=== PATIENT | female | born 1985 | race Caucasian/White ===

== ENCOUNTER 2016-08-05 08:37 | Inpatient (IN) | payer OTHER ==
[2016-08-05 09:23] VITALS: BMI 32.1
--- NOTE | 2016-08-05 13:41 | HP ---
COWS - Scale Resting Pulse: 1= [place] 81-100 Sweatin=Flushed/Facial Moisture Restless Observation: 1= Difficult to Sit Still Pupil Size: 0= Normal to Room Light Bone or Joint Aches: 2= Severe Diffuse Aches Runny Nose/ Eye Tearin= Runny Nose/Eyes GI Upset > 30mins: 2= Nausea/Diarrhea Tremor Observation: 2= Slight Tremor Visible Yawning Observation: 2= >3x During Session Anxiety or Irritability: 2=Irritable/Anxious Goose Flesh Skin: 3=Piloerection COWS Score: 19 CIWA Score - CIWA Score Nausea/Vomitin-Mild Nausea/No Vomiting Muscle Tremors: 4-Moderate,w/Arms Extend Anxiety: 3 Agitation: 4-Moderately Restless Paroxysmal Sweats: 3 Orientation: 0-Oriented Tacttile Disturbances: 0-None Auditory Disturbances: 0-None Visual Disturbances: 0-None Headache: 0-None Present CIWA-Ar Total Score: 15 Admission ROS S - HPI Chief Complaint: I am here to get clean. Allergies/Adverse Reactions: Allergies Allergy/AdvReac Type Severity Reaction Status Date / Time No Known Allergies Allergy Verified 08/05/16 10:27 History of Present Illness: pt is a 30yr old female first time here for a history of heroin and alcohol dependence seeking detox for treatment. Exam Limitations: No Limitations - Ebola screening Have you traveled outside of the country in the last 21 days: No Have you had contact with anyone from an Ebola affected area: No Have you been sick,other than usual withdrawal symptoms: No Do you have a fever: No - Review of Systems Constitutional: Chills, Diaphoresis, Loss of Appetite, Night Sweats, Changes in sleep EENT: reports: No Symptoms Reported Respiratory: reports: No Symptoms reported Cardiac: reports: No Symptoms Reported GI: reports: Constipated, Poor Appetite, Indigestion : reports: No Symptoms Reported Musculoskeletal: reports: Back Pain, Joint Pain, Muscle Pain Integumentary: reports: Flushing, Sweating Neuro: reports: Headache, Tingling, Tremors Endocrine: reports: Excessive Sweating, Flushing, Intolerance to Cold, Intolerance to Heat Hematology: reports: No Symptoms Reported Psychiatric: reports: Judgement Intact, Mood/Affect Appropiate, Orientated x3, Agitated, Anxious Other Systems: Reviewed and Negative Patient History - Patient Medical History Hx Anemia: Yes Hx Asthma: No Hx Chronic Obstructive Pulmonary Disease (COPD): No Hx Cancer: No Hx Cardiac Disorders: No Hx Congestive Heart Failure: No Hx Hypertension: No Hx Hypercholesterolemia: No Hx Pacemaker: No HX Cerebrovascular Accident: No Hx Seizures: No Hx Dementia: No Hx Diabetes: No Hx Gastrointestinal Disorders: No Hx Liver Disease: No Hx Genitourinary Disorders: No Hx Sexually Transmitted Disorders: No Hx Renal Disease (ESRD): No Hx Thyroid Disease: No Hx Human Immunodeficiency Virus (HIV): No (negative) Hx Hepatitis C: No Hx Depression: No Hx Suicide Attempt: No (denies) Hx Bipolar Disorder: No Hx Schizophrenia: No - Patient Surgical History Past Surgical History: Yes Hx Abdominal Surgery: Yes (Gastric bypass in 2010) Hx Appendectomy: Yes Hx Cholecystectomy: Yes - PPD History Previous Implant?: Yes Documented Results: Negative w/o proof Implanted On Prior [facility] Admission?: No PPD to be Administered?: Yes - Reproductive History Patient is a Female of Child Bearing Age (11 -55 yrs old): Yes LMP comment: IUD Patient : No - Smoking Cessation Smoking history: Current every day smoker Have you smoked in the past 12 months: Yes Aproximately how many cigarettes per day: 20 Hx Chewing Tobacco Use: No Initiated information on smoking cessation: Yes 'Breaking Loose' booklet given: 08/05/16 - Substance & Tx. History Hx Alcohol Use: Yes Substance Use Type: Alcohol, Heroin Hx Substance Use Treatment: Yes - Substances Abused Heroin Route: Injection Frequency: Daily Amount used: 15-20 bags Age of first use: 28 Date of Last Use: 08/04/16 Alcohol Route: Oral Frequency: Daily Amount used: 2-3 glasses Age of first use: 28 Date of Last Use: 08/04/16 Family Disease History - Family Disease History Family Disease History: Diabetes: Father (), Heart Disease: Father Admission Physical Exam [facility] - Vital Signs Vital Signs: Vital Signs - 24 hr 08/05/16 08/05/16 09:19 10:25 Temperature 98.6 F 98.6 F Pulse Rate 86 86 Respiratory 18 18 Rate Blood Pressure 129/87 129/87 - Physical General Appearance: Yes: Appropriately Dressed, Moderate Distress, Tremorous, Irritable, Sweating, Anxious HEENTM: Yes: Normal Voice Respiratory: Yes: Lungs Clear, Normal Breath Sounds, No Respiratory Distress Neck: Yes: No masses,lesions,Nodules Breast: Yes: Within Normal Limits Cardiology: Yes: Regular Rhythm, Regular Rate, S1, S2 Abdominal: Yes: Normal Bowel Sounds Genitourinary: Yes: Within Normal Limits Back: Yes: Normal Inspection Musculoskeletal: Yes: full range of Motion, Back pain, Muscle Pain Extremities: Yes: Normal Capillary Refill, Normal Inspection, Tremors Neurological: Yes: Fully Oriented, Alert, Normal Response Integumentary: Yes: Normal Color, Diaphoresis, Track Davis Lymphatic: Yes: Within Normal Limits - Diagnostic (1) Nicotine dependence Current Visit: Yes Status: Chronic Qualifiers: Nicotine product type: cigarettes Substance use status: uncomplicated Qualified Code(s): F17.210 - Nicotine dependence, cigarettes, uncomplicated (2) ADD (attention deficit disorder) Current Visit: Yes Status: Chronic (3) Alcohol dependence with uncomplicated withdrawal Current Visit: Yes Status: Chronic (4) Opioid dependence with withdrawal Current Visit: Yes Status: Chronic (5) Acne Current Visit: Yes Status: Chronic Qualifiers: Acne type: acne tropica Qualified Code(s): L70.3 - Acne tropica Cleared for Admission [facility] - Detox or Rehab [facility] Level of Care: Medically Managed Detox Regimen/Protocol: Methadone/Librium [facility] Breath Alcohol Content Breath Alcohol Content: 0 Urine Pregancy Test - Result Urine Test Results: Negative- NO Line Present Urine Drug Screen - Results Drug Screen Negative: No Urine Drug Screen Results: OPI-Opiates, AMP-Amphetamines, OXY-Oxycodone
[2016-08-05] MEDS ORDERED: MAG HYDROX/AL HYDROX/SIMETH 30 ML UNIT-DOSE CUP PO PRN (13:50)
[2016-08-05] MEDS ORDERED: MAGNESIUM HYDROX 2400MG/30ML ORAL SUSPENSION 30 ML CUP PO PRN (13:50)
[2016-08-05] MEDS ORDERED: LOPERAMIDE HCL 2 MG CAPSULE PO PRN (13:50)
[2016-08-05] MEDS ORDERED: MENTHOL/PHENOL 1 EACH UD MM PRN (13:50)
[2016-08-05] MEDS ORDERED: IBUPROFEN 400 MG TABLET (FP) PO PRN (13:50)
[2016-08-05] MEDS ORDERED: P-EPHED 60MG/TRIPROLIDI 2.5MG TABLET PO PRN (13:50)
[2016-08-05] MEDS ORDERED: diphenhydrAMINE HCL 50 MG CAPSULE PO PRN (13:50)
[2016-08-05] MEDS ORDERED: MAGNESIUM CITRATE 300 ML BOTTLE PO PRN (13:50)
[2016-08-05] MEDS ORDERED: guaiFENesin/D-METHORPHAN HB 10 ML UNIT-DOSE CUPS PO PRN (13:50)
[2016-08-05] MEDS ORDERED: SUMAtriptan SUCCINATE 25 MG TABLET PO PRN (13:52)
[2016-08-05] MEDS ORDERED: chlordiazePOXIDE HCL 25 MG CAPSULE PO ONE (14:17)
[2016-08-05] MEDS ORDERED: METHADONE HCL 10 MG TABLET (FOR DETOX USE ONLY) PO ONE ×2 (14:18→23:00)
--- NOTE | 2016-08-05 16:45 | CONSULT ---
[facility] Psychiatric Consult - Data Date of interview: 08/05/16 Admission source: [facility] Identifying data: First admission to [facility] for this 30 y/o female seeking detox treatment on for alcohol and heroin dependence.Patient is single,a mother of one,domiciled,currently unemployed and supported on her savings. Substance Abuse History: - Smoking Cessation. Smoking history: Current every day smoker. Have you smoked in the past 12 months: Yes. Aproximately how many cigarettes per day: 20. Hx Chewing Tobacco Use: No. Initiated information on smoking cessation: Yes. 'Breaking Loose' booklet given: 08/05/16. - Substance & Tx. History. Hx Alcohol Use: Yes. Substance Use Type: Alcohol, Heroin. Hx Substance Use Treatment: Yes. - Substances Abused. Heroin. Route: Injection. Frequency: Daily. Amount used: 15-20 bags. Age of first use: 28. Date of Last Use: 08/04/16. Alcohol. Route: Oral. Frequency: Daily. Amount used: 2-3 glasses. Age of first use: 28. Date of Last Use: 08/04/16. Confirmed by the patient in this interview. Medical History: Migraine headaches,anemia and a history of gastric bypass (2010 ). Psychiatric History: No history of psychiatric hospitalizations.Diagnosed with ADD.Maintained on adderall 20 mg po bid + ambien 10 mg/hs.Ms Wilkins is under the care of a private psychiatrist,Dr Robert Donovan (confirmed by pharmacy claims of 07/2016 ).She denies history of suicide attempts. Physical/Sexual Abuse/Trauma History: Patient denies. Additional Comment: Urine Drug Screen Results: OPI-Opiates, AMP-Amphetamines, OXY-Oxycodone.Noted. Mental Status Exam - Mental Status Exam Alert and Oriented to: Time, Place, Person Cognitive Function: Good Patient Appearance: Well Groomed Mood: Nervous, Apprehensive, Hopeful Affect: Mood Congruent Patient Behavior: Fatigued, Appropriate, Cooperative Speech Pattern: Clear, Appropriate Voice Loudness: Normal Thought Process: Intact, Goal Oriented Thought Disorder: Not Present Hallucinations: Denies Suicidal Ideation: Denies Homicidal Ideation: Denies Insight/Judgement: Fair Sleep: Poorly, Difficulty falling asleep Appetite: Good Muscle strength/Tone: Normal Gait/Station: Normal Psychiatric Findings - Problem List (Anita 1, 2,3) (1) ADD (attention deficit disorder) Current Visit: Yes Status: Chronic (2) Alcohol dependence with uncomplicated withdrawal Current Visit: Yes Status: Acute (3) Opioid dependence with withdrawal Current Visit: Yes Status: Acute (4) Nicotine dependence Current Visit: Yes Status: Acute Qualifiers: Nicotine product type: cigarettes Substance use status: uncomplicated Qualified Code(s): F17.210 - Nicotine dependence, cigarettes, uncomplicated (5) Acne Current Visit: Yes Status: Chronic Qualifiers: Acne type: acne tropica Qualified Code(s): L70.3 - Acne tropica (6) Insomnia Current Visit: Yes Status: Acute - Initial Treatment Plan Initial Treatment Plan: Psychoeducation.Detoxification.Medications : addrerall XR 20 mg po daily @ 8 am + zolpidem 10 mg po hs prn.Side effects/benefits discussed with the patient.She is made aware of the risk of parasomnias (ambien ) and occurrence of psychosis,agitation,cardiac complications (adderall) .Patient is reporting adequate tolerability to both drugs and she consents ( verbally) to follow this careplan.No scripts needed at discharge.Patient states that she still has enough supply at home to last her until 08/12/16 (date of her next appointment with her psychiatrist).Observation.
[2016-08-05] MEDS: chlordiazePOXIDE HCL 25 MG CAPSULE PO SCH ×2 (17:33→22:11)
[2016-08-05 20:33] LABS: URINE APPEARANCE CLOUDY; URINE BILIRUBIN NEGATIVE (NEGATIVE); URINE BLOOD NEGATIVE (NEGATIVE); URINE COLOR DKYELLOW; URINE GLUCOSE (UA) NEGATIVE (NEGATIVE); URINE KETONE NEGATIVE (NEGATIVE); URINE NITRITE NEGATIVE (NEGATIVE); URINE PROTEIN NEGATIVE (NEGATIVE); URINE UROBILINOGEN 2.0 E.U/dl E.U./dl (0.2-1.0)
[2016-08-05 20:44] LABS: URINE LEUK ESTERASE 1+ (NEGATIVE)
[2016-08-05 20:55] LABS: URINE BACTERIA RARE /hpf (NONE SEEN); URINE HYALINE CAST 3 /lpf; URINE MUCUS MANY; URINE RBC 6 /hpf (0-3); URINE WBC 13 /hpf (3-5); YEAST MANY
[2016-08-05] MEDS: THIAMINE HCL 100 MG TABLET (FP) PO SCH (22:10)
[2016-08-05] MEDS: CLINDAMYCIN PHOSPHATE 1% TOPICAL GEL 30 GM TUBE TP SCH (22:10)
[2016-08-05] MEDS: ZOLPIDEM TARTRATE 10 MG TABLET (PARK CARE ONLY) PO PRN (22:11)
[2016-08-06] MEDS: chlordiazePOXIDE HCL 25 MG CAPSULE PO PRN ×3 (00:28→18:41)
[2016-08-06] MEDS: chlordiazePOXIDE HCL 25 MG CAPSULE PO SCH ×4 (06:15→22:28)
[2016-08-06] MEDS: DEXTROAMPHETAMINE/AMPHETAMINE 10 MG CAP.ER.24H PO SCH (08:03)
--- NOTE | 2016-08-06 08:31 | PN ---
S COWS - Scale Resting Pulse: 0= [place] 80 or Below Sweatin= Chills/Flushing Restless Observation: 3= Extraneous Movement Pupil Size: 1= Pupils >than Normal Bone or Joint Aches: 2= Severe Diffuse Aches Runny Nose/ Eye Tearin= Runny Nose/Eyes GI Upset > 30mins: 2= Nausea/Diarrhea Tremor Observation of Outstretched Hands: 2= Slight Tremor Visible Yawning Observation: 2= >3x During Session Anxiety or Irritability: 2=Irritable/Anxious Goose Flesh Skin: 0=Smooth Skin COWS Score: 17 S Progress Note (SOAP) Subjective: ALERT,IRRITABLE,ANXIOUS,INTERRUPTED SLEEP,TREMOR,PAIN IN THE BODY AND BACK Objective: 08/06/16 08:30 Vital Signs Temperature 98.2 F 08/06/16 06:18 Pulse Rate 68 08/06/16 06:18 Respiratory Rate 16 08/06/16 06:18 Blood Pressure 113/67 08/06/16 06:18 O2 Sat by Pulse Oximetry (%) EKG NSR,NORMAL ECG Laboratory Last Values Urine Color Dkyellow 08/05/16 15:30 Urine Appearance Cloudy 08/05/16 15:30 Urine pH 5.0 (5.0-8.0) 08/05/16 15:30 Ur Specific [place] 1.024 (1.001-1.035) 08/05/16 15:30 Urine Protein Negative (NEGATIVE) 08/05/16 15:30 Urine Glucose (UA) Negative (NEGATIVE) 08/05/16 15:30 Urine Ketones Negative (NEGATIVE) 08/05/16 15:30 Urine Blood Negative (NEGATIVE) 08/05/16 15:30 Urine Nitrite Negative (NEGATIVE) 08/05/16 15:30 Urine Bilirubin Negative (NEGATIVE) 08/05/16 15:30 Urine Urobilinogen 2.0 e.u/dl E.U./dl (0.2-1.0) H 08/05/16 15:30 Ur Leukocyte Esterase 1+ (NEGATIVE) H 08/05/16 15:30 Urine RBC 6 /hpf (0-3) 08/05/16 15:30 Urine WBC 13 /hpf (3-5) 08/05/16 15:30 Ur Epithelial Cells Many /hpf (FEW) 08/05/16 15:30 Urine Bacteria Rare /hpf (NONE SEEN) 08/05/16 15:30 Hyaline Casts 3 /lpf 08/05/16 15:30 Urine Mucus Many 08/05/16 15:30 Urine Yeast Many 08/05/16 15:30 Hepatitis C Antibody 0.1 s/co ratio (0.0-0.9) 08/05/16 13:00 Assessment: 08/06/16 08:31 WITHDRAWAL SYMPTOM Plan: CONTINUE DETOX,REPEAT UA
[2016-08-06] MEDS: hydrOXYzine PAMOATE 50 MG CAPSULE (FP) PO PRN (08:52)
[2016-08-06 09:58] LABS: ALBUMIN 3.6 g/dl (3.4-5.0); ANION GAP 4 (8-16); CALCIUM 9.1 mg/dL (8.5-10.1); CO2 34 mmol/L (21-32); CREATININE 0.6 mg/dL (0.55-1.02); GLUCOSE,RANDOM 91 mg/dL (74-106); SGOT/AST 17 U/L (15-37); SGPT/ALT 14 U/L (12-78)
[2016-08-06 09:59] LABS: ALK PHOS 86 U/L (45-117); BILIRUBIN,TOTAL 0.3 mg/dL (0.2-1.0); TOT PROT 7.1 g/dl (6.4-8.2)
[2016-08-06] MEDS ORDERED: METHADONE HCL 10 MG TABLET (FOR DETOX USE ONLY) PO SCH (10:00)
[2016-08-06 10:09] LABS: MCHC 29.3 g/dl (32.0-36.0); MEAN CELL VOLUME 62.6 fl (80-96); MEAN PLT VOLUME 12.1 fl (7.5-11.1); PLATELET COUNT 251 K/MM3 (134-434); RDW 20.5 % (11.6-15.6); WHITE BLOOD COUNT 5.1 K/mm3 (4.0-10.0)
[2016-08-06] MEDS: NICOTINE 21 MG/24 HOURS TOPICAL PATCH TD SCH (10:14)
[2016-08-06] MEDS: CLINDAMYCIN PHOSPHATE 1% TOPICAL GEL 30 GM TUBE TP SCH ×2 (10:14→22:28)
[2016-08-06] MEDS: PRENATAL VITAMINS W/ FOLIC ACID TABLET (FP) PO SCH (10:15)
[2016-08-06 10:20] LABS: MCH 18.4 pg (25.7-33.7)
--- NOTE | 2016-08-06 11:00 | EKG ---
Test Reason : Blood Pressure : / mmHG Vent. Rate : 079 BPM Atrial Rate : 079 BPM P-R Int : 116 ms QRS Dur : 100 ms QT Int : 384 ms P-R-T Axes : 045 033 027 degrees QTc Int : 440 ms NORMAL SINUS RHYTHM NORMAL ECG NO PREVIOUS ECGS AVAILABLE Confirmed by DAMEON SEGUNDO MD ([id number]) on 08/06/2016 10:59:45 AM Referred By: Ezra Agustin Confirmed By:DAMEON SEGUNDO MD
[2016-08-06] MEDS: NICOTINE POLACRILEX 4 MG GUM BUC PRN (12:05)
[2016-08-06] MEDS ORDERED: CYCLOBENZAPRINE HCL 10 MG TABLET (FP) PO PRN (13:11)
[2016-08-06] MEDS ORDERED: CYCLOBENZAPRINE HCL 10 MG TABLET (FP) PO ONE (13:33)
[2016-08-06] MEDS ORDERED: cloNIDine HCL 0.1 MG TABLET PO ONE (13:33)
[2016-08-06 14:25] LABS: ANISOCYTOSIS 2+; HYPOCHROMIA 2+
[2016-08-06 14:26] LABS: TARGET CELLS FEW; TEAR DROP CELLS FEW
[2016-08-06] MEDS: THIAMINE HCL 100 MG TABLET (FP) PO SCH (22:28)
[2016-08-06] MEDS: cloNIDine HCL 0.1 MG TABLET PO SCH (22:29)
[2016-08-06] MEDS: ZOLPIDEM TARTRATE 10 MG TABLET (PARK CARE ONLY) PO PRN (22:29)
[2016-08-07] MEDS: chlordiazePOXIDE HCL 25 MG CAPSULE PO SCH ×2 (05:37→10:14)
[2016-08-07] MEDS: DEXTROAMPHETAMINE/AMPHETAMINE 10 MG CAP.ER.24H PO SCH (08:25)
--- NOTE | 2016-08-07 09:10 | PN ---
[facility] CIWA - CIWA Score Nausea/Vomitin Muscle Tremors: 3 Anxiety: 3 Agitation: 2 Paroxysmal Sweats: 1-Minimal Palms Moist Orientation: 0-Oriented Tacttile Disturbances: 1-Very Mild Itch/Numbness Auditory Disturbances: 1-Very Mild Visual Disturbances: 1-Very Mild Sensitivity Headache: 2-Mild CIWA-Ar Total Score: 17 [facility] COWS - Scale Resting Pulse: 0= [place] 80 or Below Sweatin= Chills/Flushing Restless Observation: 3= Extraneous Movement Pupil Size: 1= Pupils >than Normal Bone or Joint Aches: 2= Severe Diffuse Aches Runny Nose/ Eye Tearin= Runny Nose/Eyes GI Upset > 30mins: 2= Nausea/Diarrhea Tremor Observation of Outstretched Hands: 2= Slight Tremor Visible Yawning Observation: 1= 1-2x During Session Anxiety or Irritability: 2=Irritable/Anxious Goose Flesh Skin: 0=Smooth Skin COWS Score: 16 S Progress Note (SOAP) Subjective: ALERT,IRRITABLE,ANXIOUS,INTERRUPTED SLEEP,PAIN IN THE BODY AND BACK,TREMOR Objective: 08/07/16 09:08 Vital Signs Temperature 97.9 F 08/07/16 06:10 Pulse Rate 68 08/07/16 06:10 Respiratory Rate 16 08/07/16 06:10 Blood Pressure 105/63 08/07/16 06:10 O2 Sat by Pulse Oximetry (%) Laboratory Last Values WBC 5.1 K/mm3 (4.0-10.0) 08/06/16 06:00 RBC 4.47 M/mm3 (3.60-5.2) 08/06/16 06:00 Hgb 8.2 GM/dL (10.7-15.3) L 08/06/16 06:00 Hct 28.0 % (32.4-45.2) L 08/06/16 06:00 MCV 62.6 fl (80-96) L 08/06/16 06:00 MCHC 29.3 g/dl (32.0-36.0) L 08/06/16 06:00 RDW 20.5 % (11.6-15.6) H 08/06/16 06:00 Plt Count 251 K/MM3 (134-434) 08/06/16 06:00 MPV 12.1 fl (7.5-11.1) H 08/06/16 06:00 Hypochromic-Microcytic 2+ 08/06/16 06:00 Anisocytosis 2+ 08/06/16 06:00 Macrocytosis 1+ 08/06/16 06:00 Target Cells Few 08/06/16 06:00 Tear Drop Cells Few 08/06/16 06:00 Sodium 138 mmol/L (136-145) 08/06/16 06:00 Potassium 4.2 mmol/L (3.5-5.1) 08/06/16 06:00 Chloride 100 mmol/L (98-107) 08/06/16 06:00 Carbon Dioxide 34 mmol/L (21-32) H 08/06/16 06:00 Anion Gap 4 (8-16) L 08/06/16 06:00 BUN 7 mg/dL (7-18) 08/06/16 06:00 Creatinine 0.6 mg/dL (0.55-1.02) 08/06/16 06:00 Creat Clearance w eGFR > 60 (>60) 08/06/16 06:00 Random Glucose 91 mg/dL (74-106) 08/06/16 06:00 Calcium 9.1 mg/dL (8.5-10.1) 08/06/16 06:00 Total Bilirubin 0.3 mg/dL (0.2-1.0) 08/06/16 06:00 AST 17 U/L (15-37) 08/06/16 06:00 ALT 14 U/L (12-78) 08/06/16 06:00 Alkaline Phosphatase 86 U/L (45-117) 08/06/16 06:00 Total Protein 7.1 g/dl (6.4-8.2) 08/06/16 06:00 Albumin 3.6 g/dl (3.4-5.0) 08/06/16 06:00 Urine Color Dkyellow 08/05/16 15:30 Urine Appearance Cloudy 08/05/16 15:30 Urine pH 5.0 (5.0-8.0) 08/05/16 15:30 Ur Specific [place] 1.024 (1.001-1.035) 08/05/16 15:30 Urine Protein Negative (NEGATIVE) 08/05/16 15:30 Urine Glucose (UA) Negative (NEGATIVE) 08/05/16 15:30 Urine Ketones Negative (NEGATIVE) 08/05/16 15:30 Urine Blood Negative (NEGATIVE) 08/05/16 15:30 Urine Nitrite Negative (NEGATIVE) 08/05/16 15:30 Urine Bilirubin Negative (NEGATIVE) 08/05/16 15:30 Urine Urobilinogen 2.0 e.u/dl E.U./dl (0.2-1.0) H 08/05/16 15:30 Ur Leukocyte Esterase 1+ (NEGATIVE) H 08/05/16 15:30 Urine RBC 6 /hpf (0-3) 08/05/16 15:30 Urine WBC 13 /hpf (3-5) 08/05/16 15:30 Ur Epithelial Cells Many /hpf (FEW) 08/05/16 15:30 Urine Bacteria Rare /hpf (NONE SEEN) 08/05/16 15:30 Hyaline Casts 3 /lpf 08/05/16 15:30 Urine Mucus Many 08/05/16 15:30 Urine Yeast Many 08/05/16 15:30 RPR Titer Nonreactive (NONREACTIVE) 08/06/16 06:00 Hepatitis C Antibody 0.1 s/co ratio (0.0-0.9) 08/05/16 13:00 Assessment: 08/07/16 09:09 WITHDRAWAL SYMPTOM HISTORY OF ANEMIA USE TO TAKE IRON ,NON COMPLIANCE Plan: CONTINUE DETOX,FERROUS SULFATE 325 MGS PO BID
[2016-08-07] MEDS: NICOTINE POLACRILEX 4 MG GUM BUC PRN ×2 (09:11→13:50)
[2016-08-07] MEDS: chlordiazePOXIDE HCL 25 MG CAPSULE PO PRN ×2 (09:11→13:49)
[2016-08-07] MEDS ORDERED: COLLOIDAL OATMEAL 1 BAR EACH TP PRN (09:19)
[2016-08-07] MEDS: hydrOXYzine PAMOATE 50 MG CAPSULE (FP) PO PRN (10:14)
[2016-08-07] MEDS: NICOTINE 21 MG/24 HOURS TOPICAL PATCH TD SCH (10:15)
[2016-08-07] MEDS: PRENATAL VITAMINS W/ FOLIC ACID TABLET (FP) PO SCH (10:15)
[2016-08-07] MEDS: FERROUS SO4 325 MG TABLET (FP) PO SCH ×2 (10:15→22:53)
[2016-08-07] MEDS: CLINDAMYCIN PHOSPHATE 1% TOPICAL GEL 30 GM TUBE TP SCH ×2 (10:18→22:51)
[2016-08-07] MEDS: DOCUSATE SODIUM 100 MG CAPSULE (FP) PO SCH ×2 (10:18→22:53)
[2016-08-07] MEDS: cloNIDine HCL 0.1 MG TABLET PO SCH ×2 (10:21→22:09)
[2016-08-07] MEDS: METHADONE HCL 5 MG TABLET (FOR DETOX USE ONLY) PO SCH (10:21)
[2016-08-07] MEDS: ACETAMINOPHEN 325 MG TABLET (FP) PO PRN (12:15)
[2016-08-07 13:34] LABS: URINE APPEARANCE CLEAR; URINE BILIRUBIN NEGATIVE (NEGATIVE); URINE BLOOD NEGATIVE (NEGATIVE); URINE COLOR STRAW; URINE GLUCOSE (UA) NEGATIVE (NEGATIVE); URINE KETONE NEGATIVE (NEGATIVE); URINE NITRITE NEGATIVE (NEGATIVE); URINE PROTEIN NEGATIVE (NEGATIVE); URINE UROBILINOGEN NEGATIVE E.U./dl (0.2-1.0)
[2016-08-07 13:40] LABS: URINE LEUK ESTERASE TRACE (NEGATIVE)
[2016-08-07 13:41] LABS: URINE BACTERIA MANY /hpf (NONE SEEN); URINE MUCUS RARE; URINE WBC 2 /hpf (3-5)
[2016-08-07] MEDS: chlordiazePOXIDE 5 MG CAPSULE PO SCH ×2 (17:55→22:10)
[2016-08-07] MEDS: THIAMINE HCL 100 MG TABLET (FP) PO SCH (22:09)
[2016-08-07] MEDS: ZOLPIDEM TARTRATE 10 MG TABLET (PARK CARE ONLY) PO PRN (22:09)
[2016-08-08] MEDS: chlordiazePOXIDE 5 MG CAPSULE PO SCH ×2 (05:58→10:26)
[2016-08-08] MEDS: FERROUS SO4 325 MG TABLET (FP) PO SCH ×2 (10:15→22:23)
[2016-08-08] MEDS: cloNIDine HCL 0.1 MG TABLET PO SCH ×2 (10:25→22:23)
[2016-08-08] MEDS: PRENATAL VITAMINS W/ FOLIC ACID TABLET (FP) PO SCH (10:25)
[2016-08-08] MEDS: DEXTROAMPHETAMINE/AMPHETAMINE 10 MG CAP.ER.24H PO SCH (10:25)
[2016-08-08] MEDS: DOCUSATE SODIUM 100 MG CAPSULE (FP) PO SCH ×2 (10:25→22:23)
[2016-08-08] MEDS: CLINDAMYCIN PHOSPHATE 1% TOPICAL GEL 30 GM TUBE TP SCH ×2 (10:25→22:23)
[2016-08-08] MEDS: METHADONE HCL 5 MG TABLET (FOR DETOX USE ONLY) PO SCH (10:26)
[2016-08-08] MEDS: NICOTINE 21 MG/24 HOURS TOPICAL PATCH TD SCH (10:27)
--- NOTE | 2016-08-08 13:10 | PN ---
[facility] Progress Note Note: Psychiatry Attending's note (follow up) : Asked to re-consult. Reason not offered. Patient seen as per request. Doing well.Feels better and ready for discharge. Ms Wilkins denies hallucinations.No delusions. Patient denies suicidal ideation,intent or plan. Cognitively intact.No somatic complaints. Patient is ambulatory,visible,actively socializing. Adequate sleep reported.Good personal hygiene. Benign hospital course.Patient is at baseline. Ms Wilkins's statement : " I told the nurse that I needed a script for ambien at discharge.This is the reason why they called you." Patient was clearly informed,by this manual writer (on 08/05/16),that the utilization of ambien will be strictly confined to the duration of this hospital course. No scripts for zolpidem at discharge. Patient has an already scheduled appointment with her psychiatrist on 08/12/16.See my note of 08/05/16.
--- NOTE | 2016-08-08 13:51 | PN ---
S Progress Note (SOAP) Subjective: Sweating,interrupted sleep,restless Objective: 08/08/16 13:50 Vital Signs - 8 hr 08/08/16 08/08/16 06:00 10:00 Temperature 98.1 F 98.4 F Pulse Rate 76 92 H Respiratory 18 16 Rate Blood Pressure 110/64 119/69 Laboratory Last Values WBC 5.1 K/mm3 (4.0-10.0) 08/06/16 06:00 RBC 4.47 M/mm3 (3.60-5.2) 08/06/16 06:00 Hgb 8.2 GM/dL (10.7-15.3) L 08/06/16 06:00 Hct 28.0 % (32.4-45.2) L 08/06/16 06:00 MCV 62.6 fl (80-96) L 08/06/16 06:00 MCHC 29.3 g/dl (32.0-36.0) L 08/06/16 06:00 RDW 20.5 % (11.6-15.6) H 08/06/16 06:00 Plt Count 251 K/MM3 (134-434) 08/06/16 06:00 MPV 12.1 fl (7.5-11.1) H 08/06/16 06:00 Hypochromic-Microcytic 2+ 08/06/16 06:00 Anisocytosis 2+ 08/06/16 06:00 Macrocytosis 1+ 08/06/16 06:00 Target Cells Few 08/06/16 06:00 Tear Drop Cells Few 08/06/16 06:00 Sodium 138 mmol/L (136-145) 08/06/16 06:00 Potassium 4.2 mmol/L (3.5-5.1) 08/06/16 06:00 Chloride 100 mmol/L (98-107) 08/06/16 06:00 Carbon Dioxide 34 mmol/L (21-32) H 08/06/16 06:00 Anion Gap 4 (8-16) L 08/06/16 06:00 BUN 7 mg/dL (7-18) 08/06/16 06:00 Creatinine 0.6 mg/dL (0.55-1.02) 08/06/16 06:00 Creat Clearance w eGFR > 60 (>60) 08/06/16 06:00 Random Glucose 91 mg/dL (74-106) 08/06/16 06:00 Calcium 9.1 mg/dL (8.5-10.1) 08/06/16 06:00 Total Bilirubin 0.3 mg/dL (0.2-1.0) 08/06/16 06:00 AST 17 U/L (15-37) 08/06/16 06:00 ALT 14 U/L (12-78) 08/06/16 06:00 Alkaline Phosphatase 86 U/L (45-117) 08/06/16 06:00 Total Protein 7.1 g/dl (6.4-8.2) 08/06/16 06:00 Albumin 3.6 g/dl (3.4-5.0) 08/06/16 06:00 Urine Color Straw 08/07/16 10:20 Urine Appearance Clear 08/07/16 10:20 Urine pH 5.0 (5.0-8.0) 08/07/16 10:20 Ur Specific [place] 1.004 (1.001-1.035) 08/07/16 10:20 Urine Protein Negative (NEGATIVE) 08/07/16 10:20 Urine Glucose (UA) Negative (NEGATIVE) 08/07/16 10:20 Urine Ketones Negative (NEGATIVE) 08/07/16 10:20 Urine Blood Negative (NEGATIVE) 08/07/16 10:20 Urine Nitrite Negative (NEGATIVE) 08/07/16 10:20 Urine Bilirubin Negative (NEGATIVE) 08/07/16 10:20 Urine Urobilinogen Negative E.U./dl (0.2-1.0) 08/07/16 10:20 Ur Leukocyte Esterase Trace (NEGATIVE) H D 08/07/16 10:20 Urine RBC None /hpf (0-3) 08/07/16 10:20 Urine WBC 2 /hpf (3-5) 08/07/16 10:20 Ur Epithelial Cells Rare /hpf (FEW) 08/07/16 10:20 Urine Bacteria Many /hpf (NONE SEEN) 08/07/16 10:20 Hyaline Casts 3 /lpf 08/05/16 15:30 Urine Mucus Rare 08/07/16 10:20 Urine Yeast Many 08/05/16 15:30 RPR Titer Nonreactive (NONREACTIVE) 08/06/16 06:00 Hepatitis C Antibody 0.1 s/co ratio (0.0-0.9) 08/05/16 13:00 labs noted,pt. on feosol for anemia Assessment: 08/08/16 13:50 Withdrawal sx. Plan: Continue detox
[2016-08-08] MEDS: hydrOXYzine PAMOATE 50 MG CAPSULE (FP) PO PRN (14:19)
[2016-08-08] MEDS: chlordiazePOXIDE HCL 10 MG CAPSULE PO SCH ×2 (17:46→23:22)
[2016-08-08] MEDS: NICOTINE POLACRILEX 4 MG GUM BUC PRN (17:49)
[2016-08-08] MEDS: THIAMINE HCL 100 MG TABLET (FP) PO SCH (22:23)
[2016-08-08] MEDS: ACETAMINOPHEN 325 MG TABLET (FP) PO PRN (23:15)
[2016-08-08] MEDS ORDERED: ZOLPIDEM TARTRATE 5 MG TABLET PO ONE (23:21)
[2016-08-09] MEDS: chlordiazePOXIDE HCL 10 MG CAPSULE PO SCH (05:24)
[2016-08-09] MEDS: DEXTROAMPHETAMINE/AMPHETAMINE 10 MG CAP.ER.24H PO SCH (07:56)
--- NOTE | 2016-08-09 08:44 | PN ---
[facility] Progress Note (SOAP) Subjective: ALERT,NO COMPLAINT Objective: 08/09/16 08:41 Vital Signs Temperature 97.7 F 08/09/16 06:00 Pulse Rate 67 08/09/16 06:00 Respiratory Rate 18 08/09/16 06:00 Blood Pressure 104/62 08/09/16 06:00 O2 Sat by Pulse Oximetry (%) Assessment: 08/09/16 08:41 PATIENT IS STABLE,NO WITHDRAWAL SYMPTOM,WOULD LIKE TO BE DISCHARGE,HISTORY OF ANEMIA,WILL FOLLOW UP WITH HER PMD UPON DISCHARGE Plan: DISCHARGE TODAY,FOLLOW UP WITH AFTER CARE PROGRAM ARRANGEMENT AND TO SEE PMD FOR MECICAL PROBLEMA ND ANEMIA
--- NOTE | 2016-08-09 08:49 | DS ---
[facility] Detox Discharge Summary Admission Date: 08/05/16 Discharge Date: 08/09/16 - History Present History: Alcohol Dependence, Opioid Dependence Additional Comments: FOLLOW UP WITH AFTER CARE PROGRAM ARRANGEMENT AND PMD FOR ANEMIA AND MEDICAL PROBLEM Pertinent Past History: ANEMIA NICOTINE DEPENDENCE ATTENTION DEFICIT DISORDER - Physical Exam Results Vital Signs: Vital Signs Temperature 97.7 F 08/09/16 06:00 Pulse Rate 67 08/09/16 06:00 Respiratory Rate 18 08/09/16 06:00 Blood Pressure 104/62 08/09/16 06:00 O2 Sat by Pulse Oximetry (%) Pertinent Admission Physical Exam Findings: WITHDRAWAL SYMPTOM - Treatment Hospital Course: Detox Protocol Followed, Detoxed Safely, Responded well, Discharged Condition Good Patient has Accepted a Rehab Referral to: DECLINED - Medication Discharge Medications: Ambulatory Orders Dextroamphetamine/Amphetamine [Adderall 10 mg Tablet] 20 mg PO BID 08/05/16 Sumatriptan Succinate [Imitrex] 25 mg PO DAILY PRN 08/05/16 Clindamycin 1% Gel [Cleocin 1% Gel -] 1 applic TP BID #2 tube 08/07/16 - AMA Did Patient Leave Against Medical Advice: No
[2016-08-09] MEDS: cloNIDine HCL 0.1 MG TABLET PO SCH (09:23)
[2016-08-09] MEDS: FERROUS SO4 325 MG TABLET (FP) PO SCH (09:23)
[2016-08-09] MEDS: PRENATAL VITAMINS W/ FOLIC ACID TABLET (FP) PO SCH (09:23)
[2016-08-09] MEDS: DOCUSATE SODIUM 100 MG CAPSULE (FP) PO SCH (09:23)
[2016-08-09] MEDS: CLINDAMYCIN PHOSPHATE 1% TOPICAL GEL 30 GM TUBE TP SCH (09:25)
[2016-08-09] MEDS: NICOTINE 21 MG/24 HOURS TOPICAL PATCH TD SCH (09:26)
[2016-08-09 09:59] VITALS: BP 111/82; PULSE 83; TEMP 98.2
[2016-08-09] MEDS ORDERED: METHADONE HCL 10 MG TABLET (FOR DETOX USE ONLY) PO SCH (10:00)
[2016-08-09 11:44] LABS: MCHC 29.5 g/dl (32.0-36.0); MEAN CELL VOLUME 62.3 fl (80-96); MEAN PLT VOLUME 10.1 fl (7.5-11.1); PLATELET COUNT 194 K/MM3 (134-434); RDW 19.6 % (11.6-15.6); WHITE BLOOD COUNT 4.1 K/mm3 (4.0-10.0)
[2016-08-09 11:50] LABS: MCH 18.4 pg (25.7-33.7)
[2016-08-10] MEDS ORDERED: METHADONE HCL 5 MG TABLET (FOR DETOX USE ONLY) PO SCH (06:00)
== END 2016-08-09 09:52 | disposition home or self-care (01) | DRG 773 ==
LOC: YASAS 08:37 → Y6N 11:30 → UNDOADMIN 11:30 → Y6N 11:32
PROVIDERS: ADMIT Internal Medicine Addiction Medicine; ATTEND Internal Medicine Addiction Medicine
PROC: HZ2ZZZZ Detoxification Services for Substance Abuse Treatment (ICD-10-PCS; principal; 2016-08-09)
DX: F11.23 Opioid dependence with withdrawal (principal); F10.230 Alcohol dependence with withdrawal, uncomplicated; F17.210 Nicotine dependence, cigarettes, uncomplicated; F98.8 Other specified behavioral and emotional disorders with onset usually occurring in childhood and adolescence; F43.10 Post-traumatic stress disorder, unspecified; L70.3 Acne tropica
CPT/HCPCS: 36415; 80053; 81003; 81015; 85027; 86593; 93005; 93010